=== PATIENT | female | born 1970 | race Caucasian/White ===

== ENCOUNTER 2021-11-21 09:19 | Emergency (ER) | payer MEDICARE ==
[2021-11-21 10:47] LABS: Absolute Neutrophil Ct (ANC) 5.37 (1.4-6.9); Basophil (Absolute #) 0.02 (0-0.4); Eosinophil (Absolute #) 0 (0-0.5); Hematocrit 36.5 % (35-47); Hemoglobin 11.7 gm/dl (12.0-16.0); Lymphocyte (Absolute #) 2.17 (1.0-4.6); Mean Cell Volume 86.9 fl (78-100); Mean Corpuscular Hemoglobin 27.9 pg (26-32); Mean Corpuscular Hgb Concent. 32.1 g/dl (32-36); Mean Platelet Volume 9.1 fl (7.5-11.0); Monocyte (Absolute #) 0.49 (0.0-1.3); Monocytes % 6.1 % (0.0-12.0); Neutrophil % 66.7 % (36.0-66.0); Platelet Count 429 K/mm3 (150-450); Red Cell Distribution Width 14.5 % (11.5-14.0); White Blood Count 8.1 K/mm3 (4.0-10.5)
[2021-11-21 11:04] LABS: INR 0.92 (0.8-3.0); PROTIME 10.9 SECONDS (9.4-12.5)
[2021-11-21 11:06] LABS: Appearance SLIGHTLY CLOUDY (CLEAR); Bacteria RARE /HPF (NEGATIVE); Bilirubin NEGATIVE (NEGATIVE); Blood LARGE Ery/ul (0-5); Glucose NEGATIVE (NEGATIVE); Ketones NEGATIVE (NEGATIVE); Leukocyte Esterase NEGATIVE (NEGATIVE); Mucus SLIGHT /HPF (NEGATIVE); Nitrite NEGATIVE (NEGATIVE); Protein,Urine Dip NEGATIVE (Negative); RBC >101 /HPF (0-2); Specific Gravity 1.019 (1.005-1.025); Urobilinogen NEGATIVE mg/dL (0-1)
[2021-11-21 11:09] LABS: ALBUMIN 3.9 g/dL (3.5-5.0); ALKALINE PHOSPHATASE 93 U/L (38-126); ANION GAP 12.3 MEQ/L (5-15); BLOOD UREA NITROGEN 7 mg/dL (7-17); CHLORIDE 105 mmol/L (98-107); Calcium 8.7 mg/dL (8.4-10.2); Carbon Dioxide 25 mmol/L (22-30); Creatinine 1 0.48 mg/dL (0.52-1.04); EST GLOMERULAR FILTRATION RATE > 60.0 ML/MIN; Glucose 120 mg/dL (74-106); SGOT/AST 18 U/L (14-36); SGPT/ALT 13 U/L (0-35); SODIUM 139 mmol/L (137-145); Total Protein 6.9 g/dL (6.3-8.2)
--- NOTE | 2021-11-21 11:13 | ERPHSYRPT ---
- History of Present Illness Time Seen by Provider: 11/21/21 09:30 Source: patient Exam Limitations: no limitations Patient Subjective Stated Complaint: PATIENT HAS BEEN BLEEDING FOR A COUPLE DAYS. PASSING LARGE CLOTS 4X SIZE OF A BASEBALL. PATIENT HAS GONE THROUGH 4 PADS AND 4 TAMPONS IN AN HOUR. FEELS DIZZY. STATES ABDOMEN IS SWOLLEN Triage Nursing Assessment: PATIENT a&o X3. LUNDS CLEAR THROUGHOUT. BOWEL SOUNDS PRESENT. BLEEDING NOTED ON PATIENT'S SANITARY PAD. SKIN CDI. PATIENT STATES ABDOMEN IS SWOLLEN. Physician History: This is a obese 51-year-old white female patient of nurse practitioner Lilia Sanon who presents with vaginal bleeding that began yesterday and has increased today. She is passing large clots. She is never done this in the past. She feels as though she might be anemic. He states she feels a little dizzy and anxious. She has some crampy suprapubic pain as well. 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 She is sexually active. Patient drove herself to the emergency department. She does not feel as though she can get a ride home at this time. Timing/Duration: yesterday, intermittent, worse Activites at Onset: none Quality: cramping, sharpness Onset Location: suprapubic Severity of Pain-Max: moderate Severity of Pain-Current: mild (Moderate) Prior abdominal problems: none Sexual intercourse history: single partner Modifying Factors: Improves With: nothing Associated Symptoms: abdominal pain Allergies/Adverse Reactions: morphine Allergy (Verified 04/01/12 03:15) UNSURE OF WHAT DRUGS BUT DOES OK WITH ALBUTEROL Hx Tetanus, Diphtheria Vaccination/Date Given: Yes Travel Risk - International Travel Have you traveled outside of the country in past 3 weeks: No - Coronavirus Screening Are you exhibiting any of the following symptoms?: No Close contact with a COVID-19 positive Pt in past 14-21 Days: No - Vaccine Status Have you recieved a Covid-19 vaccination: No - Review of Systems Constitutional: No Symptoms Eyes: No Symptoms Ears, Nose, & Throat: No Symptoms Respiratory: No Symptoms Cardiac: No Symptoms Abdominal/Gastrointestinal: Abdominal Pain Genitourinary Symptoms: Vaginal Bleeding Musculoskeletal: No Symptoms Skin: No Symptoms Neurological: Dizziness Psychological: No Symptoms Endocrine: No Symptoms Hematologic/Lymphatic: No Symptoms Immunological/Allergic: No Symptoms All Other Systems: Reviewed and Negative - Past Medical History Pertinent Past Medical History: Yes Neurological History: No Pertinent History ENT History: No Pertinent History Cardiac History: Hypertension Respiratory History: Bronchitis Endocrine Medical History: No Pertinent History Musculoskeletal History: Fibromyalgia GI Medical History: No Pertinent History History: No Pertinent History Psycho-Social History: Anxiety Female Reproductive Disorders: No Pertinent History - Past Surgical History Past Surgical History: Yes Neuro Surgical History: No Pertinent History Cardiac: No Pertinent History Respiratory: No Pertinent History Gastrointestinal: No Pertinent History Genitourinary: No Pertinent History Musculoskeletal: No Pertinent History Female Surgical History: No Pertinent History Other Surgical History: TONSILS - Social History Smoking Status: Never smoker Exposure to second hand smoke: Yes Drug Use: none Patient Lives Alone: No - Female History Hx Last Menstrual Period: 10/19/21 - Nursing Vital Signs Nursing Vital Signs: Initial Vital Signs Temperature 97.2 F 11/21/21 09:20 Pulse Rate 93 H 11/21/21 09:20 Respiratory Rate 16 11/21/21 09:20 Blood Pressure 109/96 11/21/21 09:20 O2 Sat by Pulse Oximetry 98 11/21/21 09:20 Pain Scale Pain Intensity 2 - Physical Exam General Appearance: no apparent distress, alert, anxiety, obese Eye Exam: PERRL/EOMI, eyes nml inspection Ears, Nose, Throat Exam: normal ENT inspection, moist mucous membranes Neck Exam: normal inspection, non-tender, supple, full range of motion Respiratory Exam: normal breath sounds, lungs clear, No chest tenderness, No respiratory distress Cardiovascular Exam: regular rate/rhythm, normal heart sounds, normal peripheral pulses Gastrointestinal/Abdomen Exam: soft, normal bowel sounds, No tenderness Pelvic Exam: not done Back Exam: normal inspection, normal range of motion, No CVA tenderness, No vertebral tenderness Extremity Exam: normal inspection, normal range of motion, pelvis stable Neurologic Exam: alert, oriented x 3, cooperative, 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-XII nml as tested, normal mood/affect, nml cerebellar function, nml station & gait, sensation nml Skin Exam: normal color, warm, dry Lymphatic Exam: No adenopathy SpO2 Interpretation: normal SpO2: 100 O2 Delivery: Room Air - Course Nursing assessment & vital signs reviewed: Yes Ordered Tests: Active Orders 24 hr Category Date Time Status ABDOMEN AND PELVIS W/0 CONTRAS [CT] Stat Exams 11/21/21 10:01 Completed CBC W DIFF Stat Lab 11/21/21 10:44 Completed CMP Stat Lab 11/21/21 10:44 Completed HCG,QUALITATIVE URINE Stat Lab 11/21/21 10:07 Completed PT INR [PROTIME WITH INR] Stat Lab 11/21/21 10:44 Completed UA W/RFX UR CULTURE Stat Lab 11/21/21 10:07 Completed Lab/Rad Data: Laboratory Result Diagrams 11/21/21 10:44 11/21/21 10:44 Laboratory Results 11/21/21 11/21/21 11/21/21 Range/Units 10:44 10:44 10:44 WBC 8.1 (4.0-10.5) K/mm3 RBC 4.20 (4.1-5.4) M/mm3 Hgb 11.7 L (12.0-16.0) gm/dl Hct 36.5 (35-47) % MCV 86.9 (78-100) fl MCH 27.9 (26-32) pg MCHC 32.1 (32-36) g/dl RDW 14.5 H (11.5-14.0) % Plt Count 429 (150-450) K/mm3 MPV 9.1 (7.5-11.0) fl Gran % 66.7 H (36.0-66.0) % Eos # (Auto) 0 (0-0.5) Absolute Lymphs (auto) 2.17 (1.0-4.6) Absolute Monos (auto) 0.49 (0.0-1.3) Lymphocytes % 27.0 (24.0-44.0) % Monocytes % 6.1 (0.0-12.0) % Eosinophils % 0.0 (0.00-5.0) % Basophils % 0.2 (0.0-0.4) % Absolute Granulocytes 5.37 (1.4-6.9) Basophils # 0.02 (0-0.4) PT 10.9 (9.4-12.5) SECONDS INR 0.92 (0.8-3.0) Sodium 139 (137-145) mmol/L Potassium 4.0 (3.5-5.1) mmol/L Chloride 105 (98-107) mmol/L Carbon Dioxide 25 (22-30) mmol/L Anion Gap 12.3 (5-15) MEQ/L BUN 7 (7-17) mg/dL Creatinine 0.48 L (0.52-1.04) mg/dL Estimated GFR > 60.0 ML/MIN Glucose 120 H (74-106) mg/dL Calcium 8.7 (8.4-10.2) mg/dL Total Bilirubin 0.40 (0.2-1.3) mg/dL AST 18 (14-36) U/L ALT 13 (0-35) U/L Alkaline Phosphatase 93 (38-126) U/L Serum Total Protein 6.9 (6.3-8.2) g/dL Albumin 3.9 (3.5-5.0) g/dL Urine Color (YELLOW) Urine Appearance (CLEAR) Urine pH (5-6) Ur Specific [place] (1.005-1.025) Urine Protein (Negative) Urine Ketones (NEGATIVE) Urine Blood (0-5) Lionel/ul Urine Nitrite (NEGATIVE) Urine Bilirubin (NEGATIVE) Urine Urobilinogen (0-1) mg/dL Ur Leukocyte Esterase (NEGATIVE) Urine WBC (Auto) (0-5) /HPF Urine RBC (Auto) (0-2) /HPF U Epithel Cells (Auto) (FEW) /HPF Urine Bacteria (Auto) (NEGATIVE) /HPF Urine Mucus (Auto) (NEGATIVE) /HPF Urine Culture Reflexed (NO) Urine Glucose (NEGATIVE) mg/dL Urine HCG, Qual (Negative) 11/21/21 11/21/21 Range/Units 10:07 10:07 WBC (4.0-10.5) K/mm3 RBC (4.1-5.4) M/mm3 Hgb (12.0-16.0) gm/dl Hct (35-47) % MCV (78-100) fl MCH (26-32) pg MCHC (32-36) g/dl RDW (11.5-14.0) % Plt Count (150-450) K/mm3 MPV (7.5-11.0) fl Gran % (36.0-66.0) % Eos # (Auto) (0-0.5) Absolute Lymphs (auto) (1.0-4.6) Absolute Monos (auto) (0.0-1.3) Lymphocytes % (24.0-44.0) % Monocytes % (0.0-12.0) % Eosinophils % (0.00-5.0) % Basophils % (0.0-0.4) % Absolute Granulocytes (1.4-6.9) Basophils # (0-0.4) PT (9.4-12.5) SECONDS INR (0.8-3.0) Sodium (137-145) mmol/L Potassium (3.5-5.1) mmol/L Chloride (98-107) mmol/L Carbon Dioxide (22-30) mmol/L Anion Gap (5-15) MEQ/L BUN (7-17) mg/dL Creatinine (0.52-1.04) mg/dL Estimated GFR ML/MIN Glucose (74-106) mg/dL Calcium (8.4-10.2) mg/dL Total Bilirubin (0.2-1.3) mg/dL AST (14-36) U/L ALT (0-35) U/L Alkaline Phosphatase (38-126) U/L Serum Total Protein (6.3-8.2) g/dL Albumin (3.5-5.0) g/dL Urine Color YELLOW (YELLOW) Urine Appearance SLIGHTLY CLOUDY (CLEAR) Urine pH 6.0 (5-6) Ur Specific [place] 1.019 (1.005-1.025) Urine Protein NEGATIVE (Negative) Urine Ketones NEGATIVE (NEGATIVE) Urine Blood LARGE (0-5) Lionel/ul Urine Nitrite NEGATIVE (NEGATIVE) Urine Bilirubin NEGATIVE (NEGATIVE) Urine Urobilinogen NEGATIVE (0-1) mg/dL Ur Leukocyte Esterase NEGATIVE (NEGATIVE) Urine WBC (Auto) NONE (0-5) /HPF Urine RBC (Auto) >101 (0-2) /HPF U Epithel Cells (Auto) NONE (FEW) /HPF Urine Bacteria (Auto) RARE (NEGATIVE) /HPF Urine Mucus (Auto) SLIGHT (NEGATIVE) /HPF Urine Culture Reflexed NO (NO) Urine Glucose NEGATIVE (NEGATIVE) mg/dL Urine HCG, Qual NEGATIVE (Negative) - Progress Progress: improved Air Movement: good Progress Note: 11/21/21 12:09 Patient states that she can take Tylenol with codeine for pain without any side effects. 11/21/21 13:02 CAT scan of the abdomen pelvis without contrast shows a uterine fibroid. There are no other acute intra-abdominal or pelvic processes Blood Culture(s) Obtained: No Antibiotics given: No Counseled pt/family regarding: lab results, diagnosis, need for follow-up, rad results - Departure Departure Disposition: Home Clinical Impression: Vaginal bleeding, Uterine fibroid Condition: Stable Critical Care Time: No Referrals: MADELIN SANON HELPER DRIVER [Primary Care Provider] - Follow up/PCP as directed Additional Instructions: Expect some persistent vaginal bleeding for a few days. If the vaginal bleeding increases and you are short of breath and dizzy return to the emergency department. Call suggested mental health nurse practitioner today to make arrangements for follow- up appointment. Take your pain medicine as prescribed. Prescriptions: Acetaminophen with Codeine [Acetaminophen-Cod #3 Tablet] 1 each PO Q8H PRN #7 tablet MDD 3 PRN Reason: Moderate To Severe Pain
[2021-11-21 12:39] VITALS: BP 132/83; PULSE 88
--- NOTE | 2021-11-21 12:57 | XRAY ---
Exam: CT of the abdomen and pelvis without IV contrast from 11/21/2021. CTDI: 12.69 mGy Comparison: None. Indication: 51-year-old female with lower abdominal pain and heavy vaginal bleeding for 2 days. Technique: Non-IV contrast axial images were obtained through the abdomen and pelvis. Reconstructed coronal and sagittal images were created and reviewed. Findings: The visualized lung bases appear essentially clear. The transverse heart size appears within normal limits. The liver appears of unremarkable size and uniform attenuation revealing no mass or intrahepatic biliary duct distention. The gallbladder is distended and reveals no gross calcifications within it. The spleen appears within normal limits of size and reveals no mass. The pancreas and adrenal glands appear unremarkable. The kidneys are of average size and shape. The right kidney has a mildly transverse axes which is nonpathological. No renal calculi or hydronephrosis is seen. No gross renal mass is seen. I do not see any significant ureteral distention or definite ureterolith. Urinary bladder is distended and reveals no calcifications within it. No abdominal aortic aneurysm or abnormal retroperitoneal lymphadenopathy is seen. There is no free intraperitoneal air. A minimal supraumbilical fatty hernia is seen on the sagittal images. The appendix is identified within the right lower quadrant and appears unremarkable. Some scattered colonic stool is evident. Minimal proximal sigmoid colon diverticulosis without evidence of diverticulitis is seen. No bowel obstruction is seen. The uterus is anteflexed and measures about 10.7 cm in greatest length on sagittal image #116. The uterus measures about 7.0 cm in width on axial image #68. A mild focal contour bulge is seen at the posterior left lateral aspect of the upper uterine segment. This might represent a small fibroid. The ovaries appear grossly unremarkable. No abnormal pelvic lymphadenopathy or free fluid is seen. Skeleton reveals no acute fracture or aggressive bone lesion. Impression: 1. The uterus is anteflexed and appears mildly prominent. I small focal contour bulge is seen within the posterior left lateral aspect of the upper uterine segment. This might represent a uterine fibroid. The ovaries appear grossly unremarkable. 2. Minimal supraumbilical fatty hernia. No bowel obstruction or evidence of appendicitis is seen. Mild proximal sigmoid colon diverticulosis without evidence of diverticulitis is seen. 3. No free intraperitoneal air or free intraperitoneal fluid is seen. 4. No acute intra-abdominal or pelvic process is seen.
[2021-11-21 13:03] VITALS: O2SAT 100
== END 2021-11-21 13:12 | disposition home or self-care (01) ==
LOC: ED 09:19
DX: D25.9 Leiomyoma of uterus, unspecified (principal); N93.9 Abnormal uterine and vaginal bleeding, unspecified; R10.2 Pelvic and perineal pain; I10 Essential (primary) hypertension; Z79.891 Long term (current) use of opiate analgesic
CPT/HCPCS: 36415; 74176; 80053; 81001; 84703; 85025; 85610; 99284

== ENCOUNTER 2024-03-01 14:07 | Emergency (ER) | payer MEDICARE ==
[2024-03-01 14:26] VITALS: TEMP 97.1; O2SAT 95
[2024-03-01] MEDS ORDERED: NORCO 5/325 MG ONE (15:08)
[2024-03-01] MEDS: NORCO 5/325 MG PO ONE (15:09)
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
[2024-03-01 15:43] VITALS: BP 132/85; PULSE 105; RESP 18
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
== END 2024-03-01 16:10 | disposition home or self-care (01) ==
LOC: ED 14:07
DX: S16.1XXA Strain of muscle, fascia and tendon at neck level, initial encounter (principal); S46.912A Strain of unspecified muscle, fascia and tendon at shoulder and upper arm level, left arm, initial encounter; V43.52XA Car driver injured in collision with other type car in traffic accident, initial encounter; E11.9 Type 2 diabetes mellitus without complications; I10 Essential (primary) hypertension; Z79.84 Long term (current) use of oral hypoglycemic drugs; Z79.85 Long-term (current) use of injectable non-insulin antidiabetic drugs; Z79.899 Other long term (current) drug therapy
CPT/HCPCS: 70450; 71045; 72125; 73030; 82947; 99285; A9270-GY

== ENCOUNTER 2024-08-10 09:18 | Day surgery (SDC) | payer MEDICARE ==
[2024-08-10] MEDS ORDERED: BUPIVACAINE 0.5% VIAL IJ ONE (09:19)
[2024-08-10] MEDS ORDERED: Depo-Medrol 40 MG/ML IM ONE (09:19)
[2024-08-10] MEDS ORDERED: DIPRIVAN 200 MG/20 ML IV ONE (11:05)
--- NOTE | 2024-08-10 11:39 | XRAY ---
Indication: Left hip injection. Intraoperative fluoroscopy provided for 10 seconds. Single digital spot image submitted for interpretation demonstrates needle tip projecting lateral to left femur neck. Small amount of contrast injected for needle tip placement. Correlate with intraoperative findings/report.
--- NOTE | 2024-08-10 12:31 | XRAY ---
10 seconds of fluoroscopy was used in surgery for a left intra-articular hip injection.
== END 2024-08-10 11:26 | disposition home or self-care (01) ==
LOC: SDC-PAIN 09:18
PROVIDERS: ATTEND Psychiatry & Neurology Pain Medicine
DX: M16.12 Unilateral primary osteoarthritis, left hip (principal); E11.9 Type 2 diabetes mellitus without complications
CPT/HCPCS: 20610; 73501; 77002; 82947; J2704; Q9966

== ENCOUNTER 2024-10-11 06:53 | Day surgery (SDC) | payer MEDICARE ==
[2024-10-11] MEDS ORDERED: LIDOCAINE HCL 2% 100 MG/5 ML IJ ONE (06:54)
[2024-10-11] MEDS ORDERED: propofoL IV ONE (08:14)
--- NOTE | 2024-10-11 09:40 | XRAY ---
Indication: Right C2-C4 MBB. Intraoperative fluoroscopy provided for 19 seconds. 2 digital spot image submitted for interpretation demonstrates posterior needle tips projecting over expected right C2-C4 nerve roots. Correlate with intraoperative findings/report.
--- NOTE | 2024-10-11 09:42 | XRAY ---
19 seconds of fluoroscopy was used in surgery for a right C2-C4 MBB.
== END 2024-10-11 08:37 | disposition home or self-care (01) ==
LOC: SDC-PAIN 06:53
PROVIDERS: ATTEND Psychiatry & Neurology Pain Medicine
DX: M47.812 Spondylosis without myelopathy or radiculopathy, cervical region (principal); E11.9 Type 2 diabetes mellitus without complications
CPT/HCPCS: 64490; 64491; 72040; 77002; 82947; J2704